=== PATIENT | male | born 1945 | race Caucasian/White ===

== ENCOUNTER → 2023-12-06 11:16 | Outpatient (REF) | payer MEDICARE, SELFPAY ==
[2023-12-06 11:43] LABS: Potassium 4.4 mmol/L (3.5-5.1)
== END ==
LOC: RESEARCH 11:16
PROVIDERS: ATTENDING PHYSICIAN Internal Medicine Cardiovascular Disease
DX: I50.32 Chronic diastolic (congestive) heart failure (principal)
CPT/HCPCS: 36415; 82565; 84132

== ENCOUNTER → 2024-02-19 07:27 | Outpatient (REF) | payer MEDICARE, SELFPAY ==
[2024-02-19 09:48] LABS: Potassium 4.1 mmol/L (3.5-5.1)
== END ==
LOC: RESEARCH 07:27
PROVIDERS: ATTENDING PHYSICIAN Internal Medicine Cardiovascular Disease
DX: I50.22 Chronic systolic (congestive) heart failure (principal); I50.32 Chronic diastolic (congestive) heart failure
CPT/HCPCS: 36415; 82565; 84132

== ENCOUNTER → 2024-02-19 10:11 | Outpatient (REF) | payer MEDICARE, SELFPAY ==
[2024-02-19 12:53] LABS: NT-proBNP 1360 pg/ml
== END ==
LOC: REG 10:11
PROVIDERS: ATTENDING PHYSICIAN Internal Medicine Cardiovascular Disease; FAMILY PHYSICIAN Family Medicine
DX: I50.32 Chronic diastolic (congestive) heart failure (principal)
CPT/HCPCS: 36415; 83880

== ENCOUNTER 2025-01-23 09:35 | Emergency (ER) | payer MEDICARE, SELFPAY ==
[2025-01-23 09:38] VITALS: BP 145/69
--- NOTE | 2025-01-23 10:07 | ED.GENMED ---
History of Present Illness
General
Chief Complaint: Breathing Problem
Source: patient and spouse
Exam Limitations: none
Time Seen by Provider: 01/23/25 10:06
History of Present Illness
History of Present Illness:
79-year-old male complaining of shortness of breath and incessant coughing. Has been going on for 3 to 4 days. Had a bronchitis prior to that. Significant weight gain over the last year. Some increased leg edema. Possible low-grade fever
yesterday. No hemoptysis no sputum. Some pleuritic/musculoskeletal chest pain worse with coughing
Past History
Past History
ED Past Medical History: Arrthythmia (A fib), CHF, HTN, Other (prosthetic hypertrophy ) and Other (Mitral regurgitation)
ED Past Surgical History: Cardiac (Convergent procedure for A fib 10/06/2013, Loop Recorder Implant 01/13/2014)
Social History
Tobacco: Former smoker
Alcohol: Occasional
Drug: None
Personal:
Living: with family
Employment: Retired
Review of Systems
Review of Systems
All Other Systems: Not applicable
Respiratory: Reports cough; Denies hemoptysis
Cardiac: Denies syncope
ABD/GI: Reports no symptoms
Phy Exam
Physical Exam
Physical Exam:
GENERAL: Alert and oriented in no apparent distress
EYE: Orbits normal.
NECK: Supple, no significant adenopathy.
ENT: Pharynx without erythema
CARDIAC: Regular rate and rhythm without any obvious murmurs.
LUNGS: Crackles in both lung bases. No wheezing or rhonchi. Mild tachypnea at rest
ABDOMEN: Soft, without focal tenderness or distention
NEUROLOGICAL: Alert and oriented , grossly non-focal
SKIN: Warm and dry, no rash or lesion, no discoloration, skin intact.
MUSCULOSKELETAL: Moderate bilateral pitting edema
PSYCH: Normal and appropriate interaction.
Scores
Heart Failure Risk
Heart Failure Risk Score: Yes
History of Stroke or TIA: No
History of intubation for respiratory distress: No
Heart rate on ED arrival >/= 110: No
SaO2 <90% on arrival on room air: No
HR >/=110 during 3min walk test (or too ill to perform test): No
ECG has acute ischemic changes: No
Urea >/=12mmol/L (BUN 33.6mg/dL): No
Serum CO2>/=35mmol/L: No
Troponin I or T elevated to OR Level (0.4mg/dL): No
NT-proBNP >/=5,000ng/L (5,000pg/ml): Yes
HF Risk Score: 1
Admission Status: MEDIUM RISK 5.1% Consider observation or discharge to home with homecare & f/u visit to PCP/[facility], or SNF for treatment
Course
Orders/Labs/Results
Orders:
Orders
01/23/25 09:42
Electrocardiogram (*1) Urgent
Reason for Study: Shortness of Breath
01/23/25 09:43
EKG- Treatment ONCE
01/23/25 10:17
IV Insert/Care/Rem.- Treatment PRN
Pulse Ox/cont/shift [RESP] Stat
Quantity: 1
01/23/25 10:19
Cardiac Monitoring- Treatment ONCE
CR Chest - 2 Views Urgent
Comment:
Reason For Exam: Short of breath/cough
01/23/25 11:04
Basic Metabolic Panel Urgent
COVID-19 Antigen Urgent
Source: Nasal Swab
Complete Blood Count/With Diff Urgent
Manual Differential Urgent
NT-proBNP Urgent
Troponin I Urgent
Influenza A+B Rapid Molecular Urgent
CASH Source: Nasal Swab
Specimen Description:
RSV [Respiratory Syncytial Virus] Urgent
CASH Source: Nasal Swab
Specimen Description:
Date Specimen was Collected: 01/23/25
Time Specimen was Collected: 10:57
01/23/25 12:56
Furosemide [Lasix] 40 mg PO NOW STA
Abnormal Lab Results
01/23/25
11:04
WBC 10.9 H 10^3/uL
(4.8-10.8)
RBC 3.97 L 10^6/uL
(4.70-6.10)
Hgb 11.2 L g/dL
(13.0-18.0)
Hct 33.4 L %
(39.0-52.0)
Plt Count 97 L 10^3/uL
(130-400)
Abs Neuts (Manual) 8.2 H 10^3/uL
(1.4-6.5)
Lymphocytes (Manual) 5 L %
(20-51)
Monocytes (Manual) 11 H %
(2-9)
BUN 23 H mg/dl
(9-20)
Creatinine 1.5 H mg/dL
(0.7-1.3)
Glucose 141 H mg/dl
(70-99)
01/23/25 11:04
01/23/25 11:04
Vital Signs
Initial and Last Documented VS:
Initial Vital Signs
Temp Pulse Resp BP Pulse Ox
97.8 F 95 18 145/69 96
01/23/25 09:38 01/23/25 09:38 01/23/25 09:38 01/23/25 09:38 01/23/25 09:38
Last Documented Vital Signs
Temp Pulse Resp BP Pulse Ox
97.8 F 88 29 134/92 92
01/23/25 09:38 01/23/25 12:15 01/23/25 12:15 01/23/25 12:00 01/23/25 12:15
MDM/Problems Addressed
Differential Diagnosis Includes:
Respiratory versus fluid overload. Patient has had significant weight gain over the last year. Much more than I would expect from purely intake. Workup in progress
*Radiology
Radiology exam reviewed: radiology read reviewed (Small pleural effusions)
*Pulse Oximetry
Patient hypoxic: no
*EKG
Interpreted by ED Provider?: Yes
Interpretation: normal
Comparison EKG: no changes
Heart Rate: 94
Rate: normal
Rhythm: sinus
[place]: normal axis
Interval: normal interval
QRS Pattern: normal QRS
Ischemia: no ischemia
*Critical Care Note
Total Time (30-74mins, 75-104mins- exclusive of procedures): Not Applicable
Data Reviewed
Review of Other/Old Records Reveals: Labs, Records and Testing
Update Note
Update Note:
Patient is remained stable and nontoxic. I do not think he is in any florid heart failure although with his leg edema weight gain bump in his proBNP there could be a component of this causing some of his respiratory symptoms. He will increase his
Lasix for the next 3 days. Also steroid inhaler. He has started doxycycline for bronchitis. If there is a bronchitis component this is likely viral. No indication for admission at this time.
ED Attending Note
-
Portions of this chart may have been created with voice recognition software.� Occasional wrong word or��sound alike� substitutions may have occurred due to the inherent limitations of voice recognition software.
Discharge Plan
Departure
Patient Disposition: Home (Routine Discharge)
Date of Disposition: 01/23/25
Time of Disposition: 13:22
Patient with high blood pressure during this ER visit?: Yes
Discharge Problem:
Recurrent cough, fluid retention, Chronic renal insufficiency
Instructions: Acute Bronchitis, Adult (DC), Shortness of Breath (Dyspnea) (DC), BLOOD PRESSURE
Prescriptions:
New
fluticasone propionate 110 mcg/actuation HFA aerosol inhaler
1 inh inhalation BID Qty: 12 0RF
No Action
losartan 50 MG tablet
100 mg PO DAILY
Eliquis 5 MG tablet
5 mg PO BID
naproxen sodium 220 MG tablet
220 mg PO PRN PRN (Reason: pain)
diltiazem HCl 60 MG tablet
120 mg PO BID
Refresh Classic (PF) 10 DROPS dropperette
1 drops OPHTHALMIC QIDPRN PRN (Reason: DRY EYES)
acetaminophen 500 mg Tablet
1,000 mg PO Q6H PRN (Reason: pain)
finasteride 5 mg Tablet
5 mg PO DAILY
furosemide 80 MG tablet
40 mg PO BID
Referrals:
Adi Zapata MD [Family Provider] - Follow up in 2-3 days
Activity Restrictions/Additional Instructions:
Take 80 mg of Lasix in the morning for the next 3 days instead of 60
Take 80 mg of Lasix at night instead of 60 for the next 3 days
Recommend getting repeat kidney function tests early to mid next week
The inhaler was called into your pharmacy
I would continue the doxycycline
Interventions
Interventions:
*Risk Screen - Suicide Last Done: 01/23/25 09:38
*General Assessment Last Done: 01/23/25 09:38
*Neglect/Abuse Screening Last Done: 01/23/25 09:38
*ED- Fall Risk Assessment Last Done: 01/23/25 11:07
*ED COVID-19 Vaccine History Last Done: 01/23/25 11:07
ED- Cardiac Assessment Last Done: 01/23/25 11:08
ED- Pulmonary Assessment Last Done: 01/23/25 11:08
Discharge Date and Time
Print Language: PALESTINIAN
[2025-01-23 10:13] VITALS: BP 129/73
[2025-01-23 11:00] VITALS: BP 126/64
[2025-01-23 11:06] VITALS: BMI 32.1
[2025-01-23 11:39] LABS: Hematocrit 33.4 % (39.0-52.0); Hemoglobin 11.2 g/dL (13.0-18.0); Mean Corp Hgb Conc. 33.5 g/dL (33.0-37.0); Mean Corpuscular Hgb 28.2 pg (27.0-31.0); Mean Corpuscular Volume 84.1 fL (80.0-94.0); Red Blood Cell Count 3.97 10^6/uL (4.70-6.10); Red Cell Dist. Width 14.5 % (11.5-14.5); White Blood Cell Count 10.9 10^3/uL (4.8-10.8)
[2025-01-23 11:41] LABS: Blood Urea Nitrogen 23 mg/dl (9-20); Carbon Dioxide 26 mmol/L (22-30); Chloride 101 mmol/L (98-107); Estimated Creatinine Clearance 41 ml/min; Glucose 141 mg/dl (70-99); Potassium 3.9 mmol/L (3.5-5.1); Sodium 138 mmol/L (135-145); eGFR 46.77
[2025-01-23 11:42] LABS: COVID-19 Antigen Negative (Negative)
[2025-01-23 11:54] LABS: NT-proBNP 5050 pg/ml; Troponin I 0.017 ng/ml
[2025-01-23 12:00] VITALS: BP 134/92
[2025-01-23 12:59] LABS: Absolute Neutrophils -Man Diff 8.2 10^3/uL (1.4-6.5); Band Neutrophils 3 % (0-3); Lymphocytes 5 % (20-51); Metamyelocytes 5 % (-); Monocytes 11 % (2-9); Myelocytes 3 % (-); Platelet Count 97 10^3/uL (130-400); Platelets Checked Yes; Segmented Neutrophils 73 % (42-75)
[2025-01-23 13:00] VITALS: BP 146/100
[2025-01-23 13:00] LABS: Acanthocytes 1+; Anisocytosis 1+; Hypochromasia 1+; Normal RBC Morphology No; Ovalocytes 1+; Polychromasia 1+; Total Cells Counted 100
[2025-01-23] MEDS: LASIX 40 MG PO (13:44)
== END 2025-01-23 13:45 | disposition home or self-care (01) ==
LOC: EMR 09:35
PROVIDERS: EMERGENCY PHYSICIAN Emergency Medicine; FAMILY PHYSICIAN Family Medicine; REFERRING PHYSICIAN Physician Assistant Medical
DX: R05.9 Cough, unspecified (principal); R60.9 Edema, unspecified; I50.9 Heart failure, unspecified; I13.0 Hypertensive heart and chronic kidney disease with heart failure and stage 1 through stage 4 chronic kidney disease, or unspecified chronic kidney disease; N18.9 Chronic kidney disease, unspecified; Z11.52 Encounter for screening for COVID-19; Z87.891 Personal history of nicotine dependence
CPT/HCPCS: 99285; 71046; 80048; 83880; 84484; 85025; 87502; 87807; 87811; 93005

== ENCOUNTER → 2025-03-19 14:44 | Outpatient (REF) | payer MEDICARE, SELFPAY | LOC: RCS 14:44 | PROVIDERS: ATTENDING PHYSICIAN Internal Medicine Cardiovascular Disease; FAMILY PHYSICIAN Family Medicine | DX: I82.4Y1 Acute embolism and thrombosis of unspecified deep veins of right proximal lower extremity (principal) | CPT/HCPCS: 93306 ==